=== PATIENT | female | born 1985 | race Caucasian/White ===

== ENCOUNTER 2016-04-04 09:37 | Emergency (ER) | payer OTHER ==
[2016-04-04] MEDS ORDERED: Ciprofloxacin 500 MG TAB ONE (10:05)
--- NOTE | 2016-04-04 10:28 | ERRECORD ---
[facility] HPI COUGH (09:57 RWAG) CHIEF COMPLAINT: Patient presents for evaluation of cough. HISTORIAN: History provided by patient, 'out of inhaler. LOCATION: Symptoms are generalized. QUALITY: Symptoms described as wheezing. SEVERITY: Maximum severity of symptoms mild, Currently symptoms are mild, Maximum severity of pain rated as 7/10, Current severity of pain rated as 7/10. TIME COURSE: Patient unable to describe onset of symptoms, There has been no change in the patient's symptoms over time. ASSOCIATED WITH: No associated symptoms. EXACERBATED BY: Patient's condition exacerbated by nothing. RELIEVED BY: Patient's condition relieved by nothing because patient has not tried anything for relief. ROS (09:58 RWAG) CONSTITUTIONAL: Negative constitutional review of systems. EYES: Negative eye review of systems. ENT: Negative ears, nose, throat review of systems. CARDIOVASCULAR: Negative cardiovascular review of systems. RESPIRATORY: Historian reports cough. GI: Negative gastrointestinal review of systems. GENITOURINARY FEMALE: Negative genitourinary review of systems. MUSCULOSKELETAL: Negative musculoskeletal review of systems. SKIN: Negative skin review of systems. NEUROLOGIC: Negative neurologic review of systems. ENDOCRINE: Negative endocrine review of systems. HEMO/LYMPHATIC: Normal hematologic/lymphatic system review. ALLERGIC/IMMUNOLOGIC: Normal allergy/immunologic system review. PSYCHIATRIC: Negative psychiatric review of systems. NOTES: All systems reviewed, negative except as described above. PAST MEDICAL HISTORY (09:52 LHAL) MEDICAL HISTORY: Flu vaccine up to date, Tetanus immunization up to date, Pneumococcal vaccine not up to date, Past medical history includes history of diabetes, Type II, Past medical history includes history of hypertension, which has been treated, Patient is compliant, Past medical history includes cardiac history, cardiomegaly, hyperlipidemia, high cholesterol. asthma. FEMALE SURGICAL HISTORY: Surgical history of tubal ligation, Surgical history of section, Notes: X3. PSYCHIATRIC HISTORY: Psychiatric history includes, anxiety, bipolar disorder, depression, schizophrenia. SOCIAL HISTORY: Lives at home, with family, Patient drinks socially, rarely, Patient denies drug use, Patient currently uses tobacco, smokes cigarettes, Patient smokes 1/2 packs per day. FAMILY HISTORY: Family history is non-contributory to this case. &a-1R&a+25V*p+0X*z9819L*c202B*c15G*c2P*p-0X&a-25V&a+1R Name: Libby Cabrera : 1985 F31 MedRec: [id number] AcctNum: [id number] Prepared: SatApr 04, 2016 11:49 by Interface Page 1 of 3 pMD [facility] EMERGENCY RECORD KNOWN ALLERGIES Adult Aspirin: Reaction: Rash aspirin (Unconfirmed): Reaction: "my body gets itchy, get a bad rash" azithromycin (Unconfirmed): Reaction: "got hives" penicillin G procaine (Unconfirmed): Reaction: "my mother told me i had a reaction" Penicillins Zithromax Oral: Reaction: Hives CURRENT MEDICATIONS RisperDAL: TABLET : Strength - 2 mg : ORAL Patient Dose: 1 tab(s) Oral once a day. (09:50 LHAL) lisinopril: TABLET : Strength - 20 mg : ORAL Patient Dose: 1 tab(s) Oral once a day. (09:50 LHAL) glyBURIDE: TABLET : Strength - 2.5 mg : ORAL Patient Dose: 2.5 mg Oral once a day. (09:50 LHAL) PROzac: CAPSULE : Strength - 10 mg : ORAL Patient Dose: 20 mg Oral 2 times a day. (09:50 LHAL) Levemir: VIAL (ML) : Strength - 100 unit/mL : SUBCUTANEOUS Patient Dose: 10 units Subcutaneous 2 times a day. (09:50 LHAL) ranitidine HCl: TABLET : Strength - 75 mg : ORAL Patient Dose: 75 mg Oral once a day. (09:51 LHAL) VITAL SIGNS (09:40 LHAL) VITAL SIGNS: BP: 163/92 (Sitting), Pulse: 94 (Regular), Resp: 18 (Non-Labored), Temp: 97.8 (Oral), Pain: 7 (Intermittent), O2 sat: 96 on Room Air, Time: 04/04/2016 09:40. PHYSICAL EXAM (09:58 RWAG) CONSTITUTIONAL: Vital Signs Reviewed. HEAD: Head exam normal. EYES: Eye exam normal. ENT: ENT exam normal. NECK: Neck exam normal. RESPIRATORY CHEST: Respiratory and chest exam normal. CARDIOVASCULAR: Cardiovascular assessment normal. ABDOMEN FEMALE: Abdominal exam normal. BACK: Back exam normal. UPPER EXTREMITY: Upper extremity exam normal. NEURO: Neuro exam normal. SKIN: Skin exam normal. LYMPHATIC: Lymphatic exam normal. &a-1R&a+25V*p+0X*q6977C*c202B*c15G*c2P*p-0X&a-25V&a+1R Name: Libby Cabrera : 1985 F31 MedRec: [id number] AcctNum: [id number] Prepared: SatApr 04, 2016 11:49 by Interface Page 2 of 3 pMD [facility] EMERGENCY RECORD PSYCHIATRIC: Psychiatric exam normal. MEDICATION ADMINISTRATION SUMMARY Drug Name: *Cipro tablet, Dose Ordered: 1 tab(s), Route: Oral, Status: Given, Time: 10:09 04/04/2016, Drug Name: *DuoNeb, Dose Ordered: 3 mL, Route: Nebulize, Status: Given, Time: 09:56 04/04/2016, *Additional information available in notes, Detailed record available in Medication Service section. PROBLEM LIST No recorded problems DIAGNOSIS (10: RW) FINAL: PRIMARY: Acute bronchitis. PRESCRIPTION Cipro tablet: TABLET : 500 mg : ORAL : Quantity: 1 Unit: tab(s) Route: ORAL Schedule: 2 times a day Dispense: 14 Unit: tab(s) May substitute. Refills: No Refills . (10:00 RW) NOTES: No Refills. (10:00 RWAG) Proventil HFA: HFA AEROSOL WITH ADAPTER (GRAM) : 90 mcg : INHALATION : Quantity: 2 Unit: puff(s) Route: INHALATION Schedule: every 4 hours prn Dispense: 1 Unit: inhalation May substitute. Refills: 3 . (10:02 RWAG) NOTES: one inhaler No Refills. (10:02 RWAG) DISPOSITION PATIENT: Disposition Type: Discharge, Disposition: *Discharge Home, Disposition Transport: Car, Condition: Improved. (10:02 RWAG) Patient left the department. (10:20 [facility]) Gutierrez: LHAL=VICKY Way, Radha RWAG=MD Hickman Richard &a-1R&a+25V*p+0X*u2334D*c202B*c15G*c2P*p-0X&a-25V&a+1R Name: Libby Cabrera Halima : 1985 3 MedRec: [id number] AcctNum: [id number] Prepared: Yahaira Apr 04, 2016 11:49 by Interface Page 3 of 3 pMD MTDD
--- NOTE | 2016-04-04 10:34 | PICIS ---
[facility] EMERGENCY RECORD TRIAGE (09:49 LHAL) TRIAGE NOTES: COUGH X ONE WEEK NOW NASAL DRAINAGE AND SORE THROAT. (09:49 LHAL) PATIENT: NAME: Libby Cabrera, AGE: 31, GENDER: female, : Sat1985, TIME OF GREET: SatApr 04, 2016 09:38, PREFERRED LANGUAGE: Syriac, ETHNICITY: Not or , HIGH ALERT: HIGH ALERT 3, ECODE BILLING MAP: [facility], SSN: [id number], Zip Code: [address], KG WEIGHT: [phone], PHONE: , , , PERSON ID: [id number], PCP: TALHA HALL. (09:49 LHAL) COMPLAINT: CONGESTION/SORE THROAT/EAR PAIN. (09:49 LHAL) ADMISSION: URGENCY: 5 Fast Track, ADMISSION SOURCE: Home, TRANSPORT: CAR, BED: ER -03. (09:49 LHAL) ASSESSMENT: Assessment: COUGH X ONE WEEK NOW C/O SORE THROAT AND NASAL DRAINAGE X 2 DAYS, Symptoms began ONE WK. (09:52 LHAL) PAIN: Patient complains of pain described as, aching, Location CHEST/BACK WHEN SHE COUGHS, Pain is intermittent, Aggravating factors:, Aggravating factors include COUGH, No relieving factors. (09:52 LHAL) IMMUNIZATIONS: Flu vaccine up to date, Tetanus immunization up to date, Pneumococcal vaccine not up to date, Notes: HAS BEEN USING ROBITUSSIN. (09:52 LHAL) SIRS SCORING: Heart Rate 55-109 (0), Temp range 96.8-101.1 (0), respiratory rate 12-24 (0), Mental Status altered: no (0), Yes, Infection or Suspected Infection. (09:52 LHAL) TRIAGE SCREENING: Patient denies suicidal ideation, Patient denies presence of domestic violence. (09:52 LHAL) LMP: Last menstrual period: 03/13/16. (09:52 LHAL) PROVIDERS: TRIAGE NURSE: Radha Way RN. (09:49 LHAL) VITAL SIGNS: BP 163/92, (Sitting), Pulse 94, (Regular), Resp 18, (Non-Labored), Temp 97.8, (Oral), Pain 7, (Intermittent), O2 Sat 96, on Room Air, Time 04/04/2016 09:40. (09:40 LHAL) PREVIOUS VISIT ALLERGIES: Adult Aspirin, Penicillins, Zithromax Oral. (09:49 LHAL) Adult Aspirin, Penicillins, Zithromax Oral. (09:52 LHAL) KNOWN ALLERGIES Adult Aspirin: Reaction: Rash aspirin (Unconfirmed): Reaction: "my body gets itchy, get a bad rash" azithromycin (Unconfirmed): Reaction: "got hives" penicillin G procaine (Unconfirmed): Reaction: "my mother told me i had a reaction" Penicillins Zithromax Oral: Reaction: Hives CURRENT MEDICATIONS RisperDAL: TABLET : Strength - 2 mg : ORAL &a-1R&a+25V*p+0X*w8574X*c202B*c15G*c2P*p-0X&a-25V&a+1R Name: Libby Cabrera Halima : 1985 F31 MedRec: [id number] AcctNum: [id number] Prepared: SatApr 04, 2016 11:50 by Interface Page 1 of 6 pMD [facility] EMERGENCY RECORD Patient Dose: 1 tab(s) Oral once a day. (09:50 LHAL) lisinopril: TABLET : Strength - 20 mg : ORAL Patient Dose: 1 tab(s) Oral once a day. (09:50 LHAL) glyBURIDE: TABLET : Strength - 2.5 mg : ORAL Patient Dose: 2.5 mg Oral once a day. (09:50 LHAL) PROzac: CAPSULE : Strength - 10 mg : ORAL Patient Dose: 20 mg Oral 2 times a day. (09:50 LHAL) Levemir: VIAL (ML) : Strength - 100 unit/mL : SUBCUTANEOUS Patient Dose: 10 units Subcutaneous 2 times a day. (09:50 LHAL) ranitidine HCl: TABLET : Strength - 75 mg : ORAL Patient Dose: 75 mg Oral once a day. (09:51 LHAL) VITAL SIGNS (09:40 LHAL) VITAL SIGNS: BP: 163/92 (Sitting), Pulse: 94 (Regular), Resp: 18 (Non-Labored), Temp: 97.8 (Oral), Pain: 7 (Intermittent), O2 sat: 96 on Room Air, Time: 04/04/2016 09:40. NURSING ASSESSMENT: RESPIRATORY /CHEST (09:49 LHAL) CONSTITUTIONAL: Patient arrives ambulatory, Gait steady, History obtained from patient, Patient appears, generally ill, obese, uncomfortable, Patient cooperative, Patient alert, Oriented to person, place and time, Skin warm, Skin dry, Skin normal in color, Mucous membranes pink, Mucous membranes moist, Patient is well-groomed, Patient complains of COUGH CONGESTION SORE THROAT, TRIAGED WHEN TO ROOM AT 0942. PAIN: aching pain, PAIN TO CHEST AND BACK WHEN SHE COUGHS, Onset of pain ONE WEEK, intermittent, on a scale 0-10 patient rates pain as 7, HAS BEEN USING ROBITUSSIN. RESPIRATORY/CHEST: Lungs auscultated, Breath sounds with wheezing, to bilateral upper lobes, Respiratory assessment findings include respiratory effort easy, Respirations regular, Conversing normally, Neck and chest exam findings include trachea midline, Chest expansion equal, Chest movement symmetrical, Associated with cough, productive of, green sputum, no associated fever, no associated fume exposure, Notes: HAS FAINT EXP WHEEZES, FREQUENT DRY COUGH. ENT: Ear assessment findings include ear normal to inspection, Nasal assessment findings include nose normal to inspection, Sinuses normal, Nasal mucosa normal, Uvula normal, Tonsils, swollen +1 on the left, swollen +1 on the right, without exudates, Mucous membranes pink, and moist, Able to swallow, Speech normal, no associated fever, no associated headache, no associated decrease in oral intake. &a-1R&a+25V*p+0X*f4947H*c202B*c15G*c2P*p-0X&a-25V&a+1R Name: Libby Cabrera : 1985 F31 MedRec: [id number] AcctNum: [id number] Prepared: SatApr 04, 2016 11:50 by Interface Page 2 of 6 pMD [facility] EMERGENCY RECORD SAFETY: Side rails up, Cart/Stretcher in lowest position, Call light within reach, Hospital ID band on. NURSING PROCEDURE: DISCHARGE NOTE (10:10 LHAL) DISCHARGE: Patient discharged to home, ambulating without assistance, driving self, unaccompanied, Summary of Care printed/ provided, Patient requested and was provided an electronic copy of Discharge Instructions, Transition record given to patient, Discharge instructions given to patient, Simple or moderate discharge teaching performed, by Deandra WAY RN, Prescriptions given and instructions on side effects given, Name of prescription(s) given: CIPRO, ALBUTEROL INHALER, Medication reconciliation form given, and reviewed with patient, Above person(s) verbalized understanding of discharge instructions and follow-up care, Notes: DC HOME STABLE FEELS BETTER. BELONGINGS: Belongings and valuables with patient upon arrival to the Emergency Department include:. NURSING PROCEDURE: NURSE NOTES (09:53 [facility]) NURSES NOTES: Patient examined by physician. NURSING PROCEDURE: RESPIRATORY INTERVENTIONS (09:56 [facility]) PATIENT IDENTIFIER: Patient actively involved in identification process, Patient's identity verified by patient stating name, Patient's identity verified by patient stating date, Patient's identity verified by hospital ID bracelet. RESPIRATORY INTERVENTIONS: Respiratory interventions indicated for wheezing, Pre-intervention breath sounds with wheezing, Breath sounds otherwise clear, Pre-intervention oxygen saturation 96%, by adult/pediatric oxisensor, single pulse oximetry reading. FOLLOW-UP: After procedure, oxygen saturation 97%, After procedure, breath sounds clear, to bilateral upper lobes, to bilateral lower lobes. ORDER DETAILS Order Name: ERRT * Smal Vol Neb Initial Trmt, Status: Active, Time: 09:58 04/04/2016, User: [facility], - Ordered for: MD Vick, [facility], - Entered by: VICKY Way, [facility] Apr 04, 2016 09:58, - Quantity: 1. MEDICATION ADMINISTRATION SUMMARY Drug Name: *Cipro tablet, Dose Ordered: 1 tab(s), Route: Oral, Status: Given, Time: 10:09 04/04/2016, Drug Name: *DuoNeb, Dose Ordered: 3 mL, Route: Nebulize, Status: Given, Time: 09:56 04/04/2016, *Additional information available in notes, Detailed record available in Medication Service section. &a-1R&a+25V*p+0X*r5162N*c202B*c15G*c2P*p-0X&a-25V&a+1R Name: Libby Cabrera : 1985 F31 MedRec: [id number] AcctNum: [id number] Prepared: SatApr 04, 2016 11:50 by Interface Page 3 of 6 pMD [facility] EMERGENCY RECORD MEDICATION SERVICE Cipro tablet: Order: Cipro tablet (ciprofloxacin HCl) - Dose: 1 tab(s) : Oral Schedule: Now Notes: 500mg Ordered by: William Hickman MD Entered by: Willaim Hickman MD SatApr 04, 2016 10:04 , Acknowledged by: Radha Way RN SatApr 04, 2016 10:04 Documented as given by: Radha Way RN SatApr 04, 2016 10:09 Patient, Medication, Dose, Route and Time verified prior to administration. Amount given: 500 MG, Site: Medication administered P.O., Correct patient, time, route, dose and medication confirmed prior to administration, Patient advised of actions and side-effects prior to administration, Allergies confirmed and medications reviewed prior to administration, Administered by Deandra WAY RN, Patient in position of comfort, Side rails up, Cart in lowest position. : Follow Up : No signs or symptoms of allergic reaction noted. (10:10 LHAL) DuoNeb: Order: DuoNeb (ipratropium bromide/albuterol sulfate) - Dose: 3 mL : Nebulize Schedule: Now Notes: (0.5mg Ipratropium [place]/3mg Albuterol Sulfate = 3ml) Ordered by: William Hickman MD Entered by: William Hickman MD SatApr 04, 2016 09:54 Documented as given by: Radha Way RN SatApr 04, 2016 09:56 Patient, Medication, Dose, Route and Time verified prior to administration. Amount given: UNIT DOSE, Site: Medication administered via Hand-held nebulizer, With oxygen, Correct patient, time, route, dose and medication confirmed prior to administration, Patient advised of actions and side-effects prior to administration, Allergies confirmed and medications reviewed prior to administration, Administered by Deandra WAY RN, Patient in position of comfort, Side rails up, Cart in lowest position. : Follow Up : No signs or symptoms of allergic reaction noted, Decreased symptoms, Breath sounds improved. (10:10 LHAL) HPI COUGH (09:57 RW) CHIEF COMPLAINT: Patient presents for evaluation of cough. HISTORIAN: History provided by patient, 'out of inhaler. LOCATION: Symptoms are generalized. QUALITY: Symptoms described as wheezing. SEVERITY: Maximum severity of symptoms mild, Currently symptoms are mild, Maximum severity of pain rated as 7/10, Current severity of pain rated as 7/10. TIME COURSE: Patient unable to describe onset of symptoms, There has been no change in the patient's symptoms over time. ASSOCIATED WITH: No associated symptoms. EXACERBATED BY: Patient's condition &a-1R&a+25V*p+0X*m2989C*c202B*c15G*c2P*p-0X&a-25V&a+1R Name: Libby Cabrera : 1985 F31 MedRec: [id number] AcctNum: [id number] Prepared: SatApr 04, 2016 11:50 by Interface Page 4 of 6 pMD [facility] EMERGENCY RECORD exacerbated by nothing. RELIEVED BY: Patient's condition relieved by nothing because patient has not tried anything for relief. ROS (09:58 RWAG) CONSTITUTIONAL: Negative constitutional review of systems. EYES: Negative eye review of systems. ENT: Negative ears, nose, throat review of systems. CARDIOVASCULAR: Negative cardiovascular review of systems. RESPIRATORY: Historian reports cough. GI: Negative gastrointestinal review of systems. GENITOURINARY FEMALE: Negative genitourinary review of systems. MUSCULOSKELETAL: Negative musculoskeletal review of systems. SKIN: Negative skin review of systems. NEUROLOGIC: Negative neurologic review of systems. ENDOCRINE: Negative endocrine review of systems. HEMO/LYMPHATIC: Normal hematologic/lymphatic system review. ALLERGIC/IMMUNOLOGIC: Normal allergy/immunologic system review. PSYCHIATRIC: Negative psychiatric review of systems. NOTES: All systems reviewed, negative except as described above. PAST MEDICAL HISTORY (09:52 LHAL) MEDICAL HISTORY: Flu vaccine up to date, Tetanus immunization up to date, Pneumococcal vaccine not up to date, Past medical history includes history of diabetes, Type II, Past medical history includes history of hypertension, which has been treated, Patient is compliant, Past medical history includes cardiac history, cardiomegaly, hyperlipidemia, high cholesterol. asthma. FEMALE SURGICAL HISTORY: Surgical history of tubal ligation, Surgical history of section, Notes: X3. PSYCHIATRIC HISTORY: Psychiatric history includes, anxiety, bipolar disorder, depression, schizophrenia. SOCIAL HISTORY: Lives at home, with family, Patient drinks socially, rarely, Patient denies drug use, Patient currently uses tobacco, smokes cigarettes, Patient smokes 1/2 packs per day. FAMILY HISTORY: Family history is non-contributory to this case. PHYSICAL EXAM (09:58 RWAG) CONSTITUTIONAL: Vital Signs Reviewed. HEAD: Head exam normal. EYES: Eye exam normal. ENT: ENT exam normal. NECK: Neck exam normal. RESPIRATORY CHEST: Respiratory and chest exam normal. CARDIOVASCULAR: Cardiovascular assessment normal. ABDOMEN FEMALE: Abdominal exam normal. BACK: Back exam normal. UPPER EXTREMITY: Upper extremity exam normal. NEURO: Neuro exam normal. &a-1R&a+25V*p+0X*e4626H*c202B*c15G*c2P*p-0X&a-25V&a+1R Name: Libby Cabrera : 1985 F31 MedRec: [id number] AcctNum: [id number] Prepared: SatApr 04, 2016 11:50 by Interface Page 5 of 6 pMD [facility] EMERGENCY RECORD SKIN: Skin exam normal. LYMPHATIC: Lymphatic exam normal. PSYCHIATRIC: Psychiatric exam normal. EVENTS TRANSFER: Triage to Emergency Emergency Room -03. (SatApr 04, 2016 09:49 LHAL) Removed from Emergency Emergency Room -03. (10:20 LHAL) PROBLEM LIST No recorded problems DIAGNOSIS (10:02 RWAG) FINAL: PRIMARY: Acute bronchitis. DISPOSITION PATIENT: Disposition Type: Discharge, Disposition: *Discharge Home, Disposition Transport: Car, Condition: Improved. (10:02 RWAG) Patient left the department. (10:20 LHAL) INSTRUCTION (10:03 RWAG) DISCHARGE: BRONCHITIS W/ WHEEZING (ADULT). FOLLOWUP: Follow up with Primary Care Physician in 3-4 days. SPECIAL: Follow-up with your PCP. PRESCRIPTION Cipro tablet: TABLET : 500 mg : ORAL : Quantity: 1 Unit: tab(s) Route: ORAL Schedule: 2 times a day Dispense: 14 Unit: tab(s) May substitute. Refills: No Refills . (10:00 RWAG) NOTES: No Refills. (10:00 RWAG) Proventil HFA: HFA AEROSOL WITH ADAPTER (GRAM) : 90 mcg : INHALATION : Quantity: 2 Unit: puff(s) Route: INHALATION Schedule: every 4 hours prn Dispense: 1 Unit: inhalation May substitute. Refills: 3 . (10:02 RW) NOTES: one inhaler No Refills. (10:02 RWAG) IMAGING *DISCHARGE INSTRUCTIONS RECEIPT: Image captured from scanner. (10:12 [facility]) *SUPPLY CHARGE SHEET: Image captured from scanner. (10:13 [facility]) ADMIN DIGITAL SIGNATURE: VICKY Way Linda. (10:19 [facility]) MD Hickman Richard. (11:46 RW) Gutierrez: LHNE=VICKY Way Linda RWAG=MD Hickman Richard &a-1R&a+25V*p+0X*j0651L*c202B*c15G*c2P*p-0X&a-25V&a+1R Name: Rick Libby A : 1985 F31 MedRec: [id number] AcctNum: [id number] Prepared: SatApr 04, 2016 11:50 by Interface Page 6 of 6 pMD MTDD
== END 2016-04-04 10:10 | disposition home or self-care (01) ==
LOC: NAV ERS 09:37
DX: J20.9 Acute bronchitis, unspecified (principal); E11.9 Type 2 diabetes mellitus without complications; I10 Essential (primary) hypertension; J45.909 Unspecified asthma, uncomplicated; E78.5 Hyperlipidemia, unspecified; E78.00 Pure hypercholesterolemia, unspecified; F31.9 Bipolar disorder, unspecified; F41.9 Anxiety disorder, unspecified; F20.9 Schizophrenia, unspecified; F17.210 Nicotine dependence, cigarettes, uncomplicated; Z79.899 Other long term (current) drug therapy; Z79.4 Long term (current) use of insulin
CPT/HCPCS: 94640; J7620

== ENCOUNTER 2016-08-06 19:34 | Emergency (ER) | payer OTHER | END 2016-08-06 19:55 | disposition home or self-care (01) | LOC: NAV ERS 19:34 | DX: J04.0 Acute laryngitis (principal); E11.9 Type 2 diabetes mellitus without complications; I10 Essential (primary) hypertension; E78.5 Hyperlipidemia, unspecified; J45.909 Unspecified asthma, uncomplicated; F31.9 Bipolar disorder, unspecified; F41.9 Anxiety disorder, unspecified; F17.210 Nicotine dependence, cigarettes, uncomplicated; F20.9 Schizophrenia, unspecified; Z79.899 Other long term (current) drug therapy | CPT/HCPCS: 99283 ==

== ENCOUNTER → 2016-11-13 | Emergency (ER) | payer OTHER | LOC: NAV ERS 15:06 | DX: J06.9 Acute upper respiratory infection, unspecified (principal); E11.9 Type 2 diabetes mellitus without complications; I10 Essential (primary) hypertension; E78.5 Hyperlipidemia, unspecified; J45.909 Unspecified asthma, uncomplicated; F31.9 Bipolar disorder, unspecified; F41.9 Anxiety disorder, unspecified; F20.9 Schizophrenia, unspecified; F17.210 Nicotine dependence, cigarettes, uncomplicated; Z79.4 Long term (current) use of insulin; Z79.899 Other long term (current) drug therapy | CPT/HCPCS: 99283 ==

== ENCOUNTER 2017-05-11 18:20 | Emergency (ER) | payer OTHER ==
[2017-05-11 18:44] LABS: Bilirubin Negative (Negative); Blood, Urine Negative (Negative); Clarity Clear (Clear); Glucose, Urine (Dipstick) Negative (Negative); Leukocyte Negative (Negative); Nitrite Negative (Negative); Protein, Urine (Dipstick) Negative (Neg-Trace); Specific Gravity, Urine 1.015 (1.005-1.030); Urobilinogen 0.2 mg/dL (0.2-1.0)
[2017-05-11 18:49] LABS: Pregnancy Test - Urine (BHCG) Negative (Negative); Pregu Control Background? CLEAR/WHITE (CLR/WHITE); Pregu Control Bar Appear? YES (CONTROL BAR); Specific Gravity 1.015 (1.002-1.036)
[2017-05-11] MEDS ORDERED: Ketorolac Tromethamine 30 MG/ML VIAL ONE (19:09)
[2017-05-11] MEDS ORDERED: Ondansetron ODT 4 MG TAB ONE (19:09)
[2017-05-11 19:43] LABS: #Eosinphils 0.2 thou/uL (0.0-0.7); #Lymphocytes 1.7 thou/uL (1.20-3.40); #Monocytes 0.5 thou/uL (0.11-0.59); #Neutrophils 5.8 thou/uL (1.40-6.50); %Basophils 0.4 % (0.0-1.0); %Eosinophils 1.9 % (0.0-10.0); %Lymphocytes 20.7 % (21.0-51.0); %Monocytes 5.6 % (0.0-10.0); %Neutrophils 71.4 % (42.0-75.0); Hemoglobin 12.7 g/dL (12.0-16.0); Mean Corpuscular HGB CONC 31.6 g/dL (32.0-36.0); Mean Corpuscular Hemoglobin 26.4 pg (27.0-31.0); Mean Corpuscular Volume 83.4 fl (81.0-99.0); Mean Platelet Volume 8.9 fL (7.4-10.4); Platelet Count 219 thou/uL (130-400); RBC Distribution Width 13.1 % (11.5-14.5); Red Blood Cell (RBC) Count 4.81 mill/uL (4.20-5.40); White Blood Cell (WBC) Count 8.1 thou/uL (4.8-10.8)
[2017-05-11 19:58] LABS: ALT (SGPT) 30 U/L (8-55); AST (SGOT) 28 U/L (5-34); Albumin 3.7 g/dL (3.5-5.0); Alkaline Phosphatase 127 U/L (40-150); Anion Gap 15 mmol/L (10-20); BUN (Urea Nitrogen) 17 mg/dL (7.0-18.7); Bilirubin, Total 0.3 mg/dL (0.2-1.2); Calc. Creatinine Clearance 0 mL/min (70-130); Calcium 10.1 mg/dL (7.8-10.44); Carbon Dioxide 28 mmol/L (22-29); Chloride 100 mmol/L (98-107); Estimated GFR-MDRD 71; Globulin 3.7 g/dL (2.4-3.5); Glucose 166 mg/dL (70-105); Lipase 18 U/L (8-78); Potassium 4.3 mmol/L (3.5-5.1); Protein, Total 7.4 g/dL (6.0-8.3); Sodium 139 mmol/L (136-145)
--- NOTE | 2017-05-11 20:45 | RAD ---
FRONTAL RADIOGRAPH CHEST UPRIGHT AND SUPINE IMAGING OF ABDOMEN AND PELVIS 05/11/17 HISTORY: Left sided flank pain, left lower quadrant pain. FINDINGS: Frontal radiograph chest demonstrates no pneumothorax, pleural fluid, focal consolidation, or alveola r edema. Imaging of the abdomen demonstrates no evidence for free intraperitoneal air or small bowel obstruction. The bowel gas pattern is slightly limited in assessment on the basis of patient body hab its. IMPRESSION: No acute findings. POS: DAVID
== END 2017-05-11 21:05 | disposition home or self-care (01) ==
LOC: NAV ERS 18:20
DX: S29.011A Strain of muscle and tendon of front wall of thorax, initial encounter (principal); I10 Essential (primary) hypertension; E66.01 Morbid (severe) obesity due to excess calories; E11.9 Type 2 diabetes mellitus without complications; E78.5 Hyperlipidemia, unspecified; J45.909 Unspecified asthma, uncomplicated; F43.10 Post-traumatic stress disorder, unspecified; F41.9 Anxiety disorder, unspecified; F31.9 Bipolar disorder, unspecified; F20.9 Schizophrenia, unspecified; F17.210 Nicotine dependence, cigarettes, uncomplicated; Z79.4 Long term (current) use of insulin; Z79.899 Other long term (current) drug therapy; X58.XXXA Exposure to other specified factors, initial encounter
CPT/HCPCS: 74022; 80053; 81003; 81025; 82150; 83690; 85025; 96372; J1885; Q0162

== ENCOUNTER 2018-02-22 19:31 | Emergency (ER) | payer OTHER ==
[2018-02-22 20:04] LABS: Bilirubin Negative (Negative); Blood, Urine Large (Negative); Clarity Clear (Clear); Glucose, Urine (Dipstick) 500 mg/dL (Negative); Leukocyte Negative (Negative); Nitrite Negative (Negative); Protein, Urine (Dipstick) Negative (Neg-Trace); Urobilinogen 0.2 mg/dL (0.2-1.0); pH, Urine 5.5 (5.0-9.0)
[2018-02-22 20:06] LABS: Pregnancy Test - Urine (BHCG) Negative (Negative); Pregu Control Background? CLEAR/WHITE (CLR/WHITE); Pregu Control Bar Appear? YES (CONTROL BAR)
[2018-02-22 20:11] LABS: Bacteria/HPF None Seen HPF (None Seen); RBC/HPF 21-50 HPF (0-3); Squamous Epithelial 0-3 HPF (0-3); WBC/HPF 0-3 HPF (0-3)
== END 2018-02-22 20:07 | disposition home or self-care (01) ==
LOC: NAV ERS 19:31
DX: N93.8 Other specified abnormal uterine and vaginal bleeding (principal); E11.9 Type 2 diabetes mellitus without complications; I10 Essential (primary) hypertension; F43.10 Post-traumatic stress disorder, unspecified; E78.00 Pure hypercholesterolemia, unspecified; J45.909 Unspecified asthma, uncomplicated; F17.210 Nicotine dependence, cigarettes, uncomplicated; F41.9 Anxiety disorder, unspecified; F20.9 Schizophrenia, unspecified; F31.9 Bipolar disorder, unspecified; Z79.4 Long term (current) use of insulin; Z79.899 Other long term (current) drug therapy
CPT/HCPCS: 81003; 81015; 81025; 99284

== ENCOUNTER 2018-04-03 13:50 | Emergency (ER) | payer OTHER | END 2018-04-03 14:57 | disposition home or self-care (01) | LOC: NAV ERS 13:50 | DX: Z53.21 Procedure and treatment not carried out due to patient leaving prior to being seen by health care provider (principal) | CPT/HCPCS: 99282 ==

== ENCOUNTER 2018-06-11 21:57 | Emergency (ER) | payer OTHER ==
[2018-06-11] MEDS ORDERED: Ketorolac Tromethamine 30 MG/ML VIAL ONE ×2 (22:11→22:12)
[2018-06-11] MEDS ORDERED: Ondansetron ODT 4 MG TAB ONE ×2 (22:11→22:12)
== END 2018-06-11 22:33 | disposition home or self-care (01) ==
LOC: NAV ERS 21:57
DX: R11.2 Nausea with vomiting, unspecified (principal); R10.9 Unspecified abdominal pain; I10 Essential (primary) hypertension; E11.9 Type 2 diabetes mellitus without complications; E78.5 Hyperlipidemia, unspecified; Z79.4 Long term (current) use of insulin; J45.909 Unspecified asthma, uncomplicated; F43.10 Post-traumatic stress disorder, unspecified; F31.9 Bipolar disorder, unspecified; F41.9 Anxiety disorder, unspecified; F20.9 Schizophrenia, unspecified; F17.210 Nicotine dependence, cigarettes, uncomplicated; Z79.899 Other long term (current) drug therapy
CPT/HCPCS: 96372; J1885; Q0162

== ENCOUNTER 2018-07-09 18:43 | Emergency (ER) | payer OTHER ==
[2018-07-09] MEDS ORDERED: Pantoprazole 40 MG VIAL ONE (20:00)
[2018-07-09] MEDS ORDERED: Lidocaine Viscous Sol 2% 15 ml UD Cup ONE (20:00)
[2018-07-09] MEDS ORDERED: Mag-Al Plus 1200 MG/1200 MG/120 MG/30 ML UDCUP ONE (20:00)
[2018-07-09 20:07] LABS: #Eosinphils 0.1 thou/uL (0.0-0.7); #Lymphocytes 2.4 thou/uL (1.20-3.40); #Monocytes 0.3 thou/uL (0.11-0.59); #Neutrophils 8.3 thou/uL (1.40-6.50); %Basophils 0.4 % (0.0-1.0); %Eosinophils 1.1 % (0.0-10.0); %Lymphocytes 21.1 % (21.0-51.0); %Monocytes 2.7 % (0.0-10.0); %Neutrophils 74.6 % (42.0-75.0); Hemoglobin 13.4 g/dL (12.0-16.0); Mean Corpuscular Hemoglobin 25.6 pg (27.0-31.0); Mean Corpuscular Volume 82.8 fL (78.0-98.0); Platelet Count 168 thou/uL (130-400); RBC Distribution Width 13.7 % (11.5-14.5); Red Blood Cell (RBC) Count 5.24 mill/uL (4.20-5.40); White Blood Cell (WBC) Count 11.1 thou/uL (4.8-10.8)
[2018-07-09 20:20] LABS: ALT (SGPT) 23 U/L (8-55); AST (SGOT) 24 U/L (5-34); Albumin 3.8 g/dL (3.5-5.0); Alkaline Phosphatase 127 U/L (40-150); Anion Gap 17 mmol/L (10-20); BUN (Urea Nitrogen) 12 mg/dL (7.0-18.7); Bilirubin, Total 0.4 mg/dL (0.2-1.2); CK (CPK) 18 U/L (29-168); Calc. Creatinine Clearance 0 mL/min (70-130); Calcium 9.8 mg/dL (7.8-10.44); Carbon Dioxide 26 mmol/L (22-29); Chloride 100 mmol/L (98-107); Estimated GFR-MDRD Greater than 90; Globulin 3.4 g/dL (2.4-3.5); Glucose 156 mg/dL (70-105); Lipase 17 U/L (8-78); Potassium 4.4 mmol/L (3.5-5.1); Protein, Total 7.2 g/dL (6.0-8.3); Sodium 139 mmol/L (136-145)
--- NOTE | 2018-07-09 20:48 | RAD ---
Portable frontal chest radiograph: 07/09/2018 COMPARISON: 01/17/2018 HISTORY: Epigastric pain, chest pain FINDINGS: Lungs are clear. Heart and mediastinal contours appear within normal limits. IMPRESSION: No acute findings.
== END 2018-07-09 21:17 | disposition home or self-care (01) ==
LOC: NAV ERS 18:43
DX: R07.2 Precordial pain (principal); E11.9 Type 2 diabetes mellitus without complications; E78.5 Hyperlipidemia, unspecified; F31.9 Bipolar disorder, unspecified; F41.9 Anxiety disorder, unspecified; F43.10 Post-traumatic stress disorder, unspecified; F20.9 Schizophrenia, unspecified; J45.909 Unspecified asthma, uncomplicated; F17.210 Nicotine dependence, cigarettes, uncomplicated; Z79.4 Long term (current) use of insulin; Z79.899 Other long term (current) drug therapy
CPT/HCPCS: 71045; 80053; 82550; 83690; 84484; 85025; 93005; 96374; C9113

== ENCOUNTER 2018-09-01 13:52 | Emergency (ER) | payer OTHER | END 2018-09-01 14:50 | disposition home or self-care (01) | LOC: NAV ERS 13:52 | DX: N76.4 Abscess of vulva (principal); F43.10 Post-traumatic stress disorder, unspecified; F41.9 Anxiety disorder, unspecified; F31.9 Bipolar disorder, unspecified; F20.9 Schizophrenia, unspecified; F17.210 Nicotine dependence, cigarettes, uncomplicated | CPT/HCPCS: 99282 ==

== ENCOUNTER 2018-09-01 23:14 | Emergency (ER) | payer OTHER ==
[2018-09-01] MEDS ORDERED: Lidocaine 1% (PF) 30 ML VIAL ONE (23:38)
== END 2018-09-01 23:59 | disposition home or self-care (01) ==
LOC: NAV ERS 23:14
DX: N76.4 Abscess of vulva (principal); E11.9 Type 2 diabetes mellitus without complications; Z79.4 Long term (current) use of insulin; E78.5 Hyperlipidemia, unspecified; I10 Essential (primary) hypertension; F41.9 Anxiety disorder, unspecified; F31.9 Bipolar disorder, unspecified; F20.9 Schizophrenia, unspecified; F17.210 Nicotine dependence, cigarettes, uncomplicated; Z79.899 Other long term (current) drug therapy
CPT/HCPCS: 56405; 87070; 87205; 99282; J2001

== ENCOUNTER 2020-07-15 17:32 | Emergency (ER) | payer OTHER | END 2020-07-15 18:10 | disposition home or self-care (01) | LOC: NAV ERS 17:32 | DX: H70.91 Unspecified mastoiditis, right ear (principal); E11.40 Type 2 diabetes mellitus with diabetic neuropathy, unspecified; E78.5 Hyperlipidemia, unspecified; I10 Essential (primary) hypertension; K21.9 Gastro-esophageal reflux disease without esophagitis; F17.200 Nicotine dependence, unspecified, uncomplicated; Z79.4 Long term (current) use of insulin; Z79.899 Other long term (current) drug therapy | CPT/HCPCS: 99283 ==

== ENCOUNTER 2021-01-04 19:56 | Emergency (ER) | payer OTHER | END 2021-01-04 20:39 | disposition home or self-care (01) | LOC: NAV ERS 19:56 | DX: L30.9 Dermatitis, unspecified (principal); E78.5 Hyperlipidemia, unspecified; I10 Essential (primary) hypertension; K21.9 Gastro-esophageal reflux disease without esophagitis; E11.40 Type 2 diabetes mellitus with diabetic neuropathy, unspecified; F17.200 Nicotine dependence, unspecified, uncomplicated; Z79.4 Long term (current) use of insulin; Z79.899 Other long term (current) drug therapy | CPT/HCPCS: 99282 ==

== ENCOUNTER 2021-01-19 21:16 | Emergency (ER) | payer OTHER ==
[2021-01-19] MEDS ORDERED: Ondansetron ODT 4 MG TAB ONE (21:37)
== END 2021-01-19 22:28 | disposition home or self-care (01) ==
LOC: NAV ERS 21:16
DX: S16.1XXA Strain of muscle, fascia and tendon at neck level, initial encounter (principal); S00.03XA Contusion of scalp, initial encounter; E78.5 Hyperlipidemia, unspecified; I10 Essential (primary) hypertension; E11.9 Type 2 diabetes mellitus without complications; Z79.4 Long term (current) use of insulin; K21.9 Gastro-esophageal reflux disease without esophagitis; G43.909 Migraine, unspecified, not intractable, without status migrainosus; F17.210 Nicotine dependence, cigarettes, uncomplicated; Z79.899 Other long term (current) drug therapy; W19.XXXA Unspecified fall, initial encounter; W18.09XA Striking against other object with subsequent fall, initial encounter
CPT/HCPCS: 70450; 72125; Q0162

== ENCOUNTER 2023-12-22 23:50 | Emergency (ER) | payer OTHER ==
[2023-12-23 00:35] LABS: #Eosinophils 0.1 thou/uL (0.0-0.7); #Lymphocytes 1.8 thou/uL (1.20-3.40); #Monocytes 0.5 thou/uL (0.11-0.59); %Basophils 0.4 % (0.0-1.0); %Eosinophils 0.9 % (0.0-10.0); %Lymphocytes 15.4 % (21.0-51.0); %Monocytes 4.8 % (0.0-10.0); %Neutrophils 78.6 % (42.0-75.0); Hematocrit 47.5 % (36.0-47.0); Hemoglobin 15.2 g/dL (12.0-16.0); Mean Corpuscular HGB CONC 31.9 g/dL (32.0-36.0); Mean Corpuscular Hemoglobin 28.8 pg (27.0-31.0); Mean Corpuscular Volume 90.4 fl (78.0-98.0); Mean Platelet Volume 9.4 fL (7.4-10.4); Platelet Count 284 10x3/uL (130-400); RBC Distribution Width 13.7 % (11.5-14.5); Red Blood Cell (RBC) Count 5.25 mill/uL (4.20-5.40); White Blood Cell (WBC) Count 11.4 10x3/uL (4.8-10.8)
[2023-12-23 00:40] LABS: Bilirubin Negative (Negative); Blood, Urine Small (Negative); Clarity Clear (Clear); Glucose, Urine (Dipstick) Negative (Negative); Ketone, Urine Negative (Negative); Leukocyte Negative (Negative); Nitrite Negative (Negative); Protein, Urine (Dipstick) Negative (Neg-Trace); Specific Gravity, Urine 1.025 (1.005-1.030); pH, Urine 6.5 (5.0-9.0)
[2023-12-23 00:45] LABS: CAUTI Indications for Culture Fever or rigors; RBC/HPF 0-3 HPF (0-3); WBC/HPF 0-3 HPF (0-3)
[2023-12-23 00:46] LABS: Bacteria/HPF Rare-Few HPF (None Seen); Squamous Epithelial 0-3 HPF (0-3); Urine Culture Reflex No No
[2023-12-23 00:47] LABS: Amphetamine Not Detected (NotDetected); Barbiturates Screen Not Detected (NotDetected); Benzodiazepine Screen Not Detected (NotDetected); Cocaine Metabolite Screen Not Detected (NotDetected); Methadone Not Detected (NotDetected); Methamphetamine Not Detected (NotDetected); Opiate Screen Not Detected (NotDetected); Oxycodone Screen Not Detected (NotDetected); Phencyclidine (PCP) Not Detected (NotDetected); THC/Cannabinoid Screen Not Detected (NotDetected); Tricyclic Screen Not Detected (NotDetected)
[2023-12-23 00:53] LABS: ALT (SGPT) 19 U/L (8-55); AST (SGOT) 16 U/L (5-34); Albumin 3.3 g/dL (3.5-5.0); Alkaline Phosphatase 97 U/L (40-110); Anion Gap 15 mmol/L (10-20); BUN (Urea Nitrogen) 17 mg/dL (7.0-18.7); Bilirubin, Total 0.4 mg/dL (0.2-1.2); Calc. Creatinine Clearance 0 mL/min (70-130); Calcium 9.5 mg/dL (7.8-10.44); Carbon Dioxide 29 mmol/L (22-29); Chloride 101 mmol/L (98-107); Estimated GFR 82; Glucose 104 mg/dL (70-105); Potassium 4.2 mmol/L (3.5-5.1); Protein, Total 7.3 g/dL (6.0-8.3); Sodium 141 mmol/L (136-145)
== END 2023-12-23 01:35 | disposition home or self-care (01) ==
LOC: NAV ERS 23:50
DX: E11.649 Type 2 diabetes mellitus with hypoglycemia without coma (principal); E11.40 Type 2 diabetes mellitus with diabetic neuropathy, unspecified; I11.0 Hypertensive heart disease with heart failure; I50.9 Heart failure, unspecified; F17.210 Nicotine dependence, cigarettes, uncomplicated; I48.91 Unspecified atrial fibrillation; Z79.4 Long term (current) use of insulin; Z79.899 Other long term (current) drug therapy; Z79.01 Long term (current) use of anticoagulants
CPT/HCPCS: 36416; 80053; 80306; 81001; 84443; 85025; 99284